=== PATIENT | female | born 1940 | race Caucasian/White ===

== ENCOUNTER 2017-10-24 18:08 | Emergency (ER) | payer OTHER ==
[~2017-10-24] VITALS: Ht 170.2 cm; Wt 97.5 kg
[2017-10-24 18:45] LABS: ABSOLUTE BASOPHILS 0.1 thou/uL (0.0-0.2); ABSOLUTE EOSINOPHILS 0.2 thou/uL (0.0-0.7); ABSOLUTE LYMPHOCYTES 3.5 thou/uL (0.8-5.3); ABSOLUTE MONOCYTES 0.6 thou/uL (0.0-1.2); ABSOLUTE NEUTROPHILS 5.6 thou/uL (1.6-8.1); BASOPHILS 1.1 %; EOSINOPHILS 2.1 %; HEMATOCRIT 41.3 % (37.0-47.0); HEMOGLOBIN 12.9 gm/dL (12.0-15.0); LYMPHOCYTES 34.9 %; MCHC 31.3 g/dL (28.0-37.0); MCV 79.6 fL (80.0-100.0); MONOCYTES 6.4 %; MPV 8.2 fl. (7.2-11.1); NUCLEATED RBCS 0 /100WBC; PLATELET COUNT* 336 thou/uL (150-400); POLYS 55.5 %; RBC 5.18 mil/uL (4.20-5.00); RDW-CV 17.6 % (10.5-14.5); WBC 10.1 thou/uL (4.0-11.0)
[2017-10-24 18:47] LABS: CALCIUM 9.5 mg/dL (8.5-10.1); CREATININE 0.8 mg/dL (0.6-1.3); POTASSIUM 3.8 mmol/L (3.5-5.1)
[2017-10-24 18:52] LABS: ALBUMIN 3.4 g/dL (3.4-5.0); TOTAL BILIRUBIN 0.3 mg/dL (<0.1-1.0)
[2017-10-24] MEDS ORDERED: ATIVAN0.5 MG PO (19:21)
[2017-10-24] MEDS ORDERED: SYNTHROID175 MCG PO (19:22)
[2017-10-24] MEDS ORDERED: ELIQUIS5 MG PO (19:23)
[2017-10-24] MEDS ORDERED: AMARYL4 MG PO (19:23)
[2017-10-24] MEDS ORDERED: CARDIZEM CD180 MG PO (19:23)
[2017-10-24] MEDS ORDERED: NEURONTIN 300300 M1 PO (19:24)
[2017-10-24] MEDS ORDERED: DOXYCYCLINE 10100 MG PO (20:17)
[2017-10-24] MEDS ORDERED: IBUPROFEN 600600 M1 PO (20:17)
[2017-10-24 20:34] VITALS: BP 150/95
--- NOTE | 2017-10-25 13:22 | EKG ---
[place] [address] ELECTROCARDIOGRAM REPORT Name: RAYMUNDO HERNANDEZ Room: [facility]#: [id number] Admission: 10/24/17 Attend Phys: Discharge: 10/24/17 Date of : 40 Report #: [id number] THIS REPORT FOR: //name// [facility] ED Test Date: 2017-10-24 Test Time: 18:18:47 Pat Name: RAYMUNDO HERNANDEZ Department: Room: Gender: F Instrument Specialist: STUDENT : 1940 Requested By: Ariella Pozo Order Number: [id number] Moe MD: Pee Peña Measurements Intervals [place] Rate: 92 P: 33 DE: 194 QRS: 58 QRSD: 105 T: 4 QT: 365 QTc: 452 Interpretive Statements Sinus rhythm Probable left atrial enlargement Low voltage, precordial leads No previous ECG available for comparison Electronically Signed On 10-25-2017 13:22:01 BIOMEDICAL INSTRUMENT TECHNICIAN by Pee Peña [email or web address] <ELECTRONICALLY SIGNED> By: Pee Peña MD, [facility] 10/25/17 1322 D: 02/1817 17 Pee Peña MD, FACC /EPI
== END 2017-10-24 20:36 | disposition home or self-care (01) ==
LOC: M.ERS 18:08
PROVIDERS: Physician Assistant
DX: R51 Headache (principal); J01.90 Acute sinusitis, unspecified; I10 Essential (primary) hypertension; E11.36 Type 2 diabetes mellitus with diabetic cataract; E78.5 Hyperlipidemia, unspecified; Z88.5 Allergy status to narcotic agent; Z88.0 Allergy status to penicillin